=== PATIENT | female | born 1965 | race Caucasian/White ===

== ENCOUNTER 2023-04-19 19:33 | Inpatient (IN) | payer MEDICAID ==
[~2023-04-19] VITALS: Ht 167.6 cm; Wt 90.3 kg
[2023-04-19] MEDS ORDERED: IV NS 0.9% 500 ML BAG IV ONE (21:00)
[2023-04-19] MEDS ORDERED: MECLIZINE HCL 25 MG TABLET ONE (21:35)
[2023-04-19] MEDS ORDERED: ACETAMINOPHEN ES 500 MG TABLET ONE (21:36)
[2023-04-19] MEDS ORDERED: ONDANSETRON 4 MG TAB.RAPDIS ONE (21:36)
[2023-04-19 21:51] LABS: BASOPHILS % (AUTO) 0.5 % (0.0-2.0); EOSINOPHILS # (AUTO) 0.1 K/uL (0.0-0.7); EOSINOPHILS % (AUTO) 1.6 % (0.0-6.0); HEMATOCRIT 43 % (33-45); HEMOGLOBIN 14.5 g/dL (11.5-14.8); LYMPHOCYTES # (AUTO) 1.2 K/uL (0.8-4.8); LYMPHOCYTES % (AUTO) 19.3 % (20.0-44.0); MEAN CORPUSCULAR HEMOGLOBIN 30 PG (26.0-33.0); MEAN CORPUSCULAR HGB CONC 33 g/dl (31.0-36.0); MEAN CORPUSCULAR VOLUME 89 fL (82-100); MONOCYTES # (AUTO) 0.4 K/uL (0.1-1.30); NEUTROPHILS # (AUTO) 4.7 K/uL (1.8-8.9); NEUTROPHILS % (AUTO) 72.6 % (43.0-81.0); PLATELET COUNT (AUTO) 320 K/uL (150-450); RED BLOOD CELL COUNT(AUTO) 4.88 MIL/uL (4.0-5.2); RED CELL DISTRIBUTION WIDTH 14.3 % (11.5-15.0); WHITE BLOOD COUNT (AUTO) 6.5 K/uL (4.3-11.0)
[2023-04-19] MEDS ORDERED: ONDANSETRON 4 MG TAB.RAPDIS PO ONE (22:00)
[2023-04-19] MEDS ORDERED: ASPIRIN 325 MG TABLET PO ONE (22:00)
[2023-04-19] MEDS ORDERED: ACETAMINOPHEN ES 500 MG TABLET PO ONE (22:00)
[2023-04-19] MEDS ORDERED: MECLIZINE HCL 12.5 MG TABLET PO ONE (22:00)
[2023-04-19 22:04] LABS: APPEARANCE,URINE CLEAR (CLEAR); BILIRUBIN,URINE NEGATIVE (NEGATIVE); BLOOD, URINE TRACE-INTA Ery/uL (NEGATIVE); COLOR,URINE YELLOW (YELLOW); KETONES,URINE NEGATIVE (NEGATIVE); LEUKOCYTE ESTERASE ,URINE NEGATIVE (NEGATIVE); NITRITE, URINE NEGATIVE (NEGATIVE); PROTEIN,URINE 2+ mg/dl (NEGATIVE); UGLUCOSE NEGATIVE (NEGATIVE); UROBILINOGEN,URINE 0.2 EU/dL (0.2)
[2023-04-19] MEDS ORDERED: ASPIRIN 325 MG TABLET ONE (22:05)
[2023-04-19 22:06] LABS: CARBON DIOXIDE 29 mmol/L (21-32); CHLORIDE 99 mmol/L (98-107); CREATININE 0.8 mg/dL (0.6-1.3); GLUCOSE 131 mg/dL (74-106); POTASSIUM 3.7 mmol/L (3.5-5.1); SODIUM SERUM 135 mmol/L (136-145); UREA NITROGEN, BLOOD 11 mg/dL (7-18)
[2023-04-19 22:12] LABS: ALANINE AMINOTRANSFERASE 53 U/L (12-78); ALBUMIN 3.7 g/dL (3.4-5.0); ALKALINE PHOSPHATASE 114 U/L (46-116); ASPARTATE AMINOTRANSFERASE 23 U/L (15-37); BILIRUBIN,DIRECT 0.1 mg/dL (0.0-0.2); BILIRUBIN,TOTAL 0.3 mg/dL (0.2-1.0); TOTAL PROTEIN, SERUM 8.2 g/dL (6.4-8.2)
[2023-04-19 22:24] LABS: ADD URINE CULTURE NO; BACTERIA,URINE None seen /HPF (None Seen); MUCUS,URINE Many /LPF (None Seen); WBC,URINE 0-2 /HPF (0-3)
[2023-04-19 22:44] LABS: INR 1.02 (0.91-1.10); PARTIAL THROMBOPLASTIN TIME 30.8 SEC (24.3-34.3); PROTHROMBIN TIME 10.8 SECS (9.2-11.1)
[2023-04-19 22:58] VITALS: BP 177/100; TEMP 97.9; O2SAT 99
[2023-04-19] MEDS ORDERED: ONDANSETRON HCL/PF 4 MG/2 ML VIAL IVP PRN (23:00)
[2023-04-19] MEDS ORDERED: MAGNESIUM HYDROXIDE 30 ML UDC PO PRN (23:00)
[2023-04-19] MEDS ORDERED: Z GUARD REMEDY 4 OZ OINT TP PRN (23:00)
[2023-04-19] MEDS ORDERED: ACETAMINOPHEN 325 MG TABLET PO PRN (23:00)
[2023-04-19] MEDS ORDERED: MECLIZINE HCL 12.5 MG TABLET PO PRN (23:00)
[2023-04-19] MEDS ORDERED: ZOLPIDEM TARTRATE 5 MG TABLET PO PRN (23:00)
[2023-04-19] MEDS ORDERED: MAG HYDROX/AL HYDROX/SIMETH 30 ML UDC PO PRN (23:00)
[2023-04-20] VITALS: BP 169/96; TEMP 97.9; O2SAT 96
[2023-04-20 04:00] VITALS: BP 167/99; TEMP 97.5; O2SAT 100
[2023-04-20 07:30] LABS: BASOPHILS % (AUTO) 0.5 % (0.0-2.0); EOSINOPHILS # (AUTO) 0.3 K/uL (0.0-0.7); EOSINOPHILS % (AUTO) 4.7 % (0.0-6.0); HEMATOCRIT 43 % (33-45); HEMOGLOBIN 14.3 g/dL (11.5-14.8); LYMPHOCYTES # (AUTO) 1.9 K/uL (0.8-4.8); LYMPHOCYTES % (AUTO) 27.6 % (20.0-44.0); MEAN CORPUSCULAR HEMOGLOBIN 30 PG (26.0-33.0); MEAN CORPUSCULAR HGB CONC 33 g/dl (31.0-36.0); MEAN CORPUSCULAR VOLUME 89 fL (82-100); MONOCYTES # (AUTO) 0.6 K/uL (0.1-1.30); MONOCYTES % (AUTO) 8.6 % (2.0-12.0); NEUTROPHILS % (AUTO) 58.6 % (43.0-81.0); PLATELET COUNT (AUTO) 314 K/uL (150-450); RED BLOOD CELL COUNT(AUTO) 4.85 MIL/uL (4.0-5.2); RED CELL DISTRIBUTION WIDTH 14.5 % (11.5-15.0); WHITE BLOOD COUNT (AUTO) 6.8 K/uL (4.3-11.0)
[2023-04-20 07:40] LABS: CALCIUM, SERUM 9.2 mg/dL (8.5-10.1); CREATININE 0.8 mg/dL (0.6-1.3); MAGNESIUM 2.3 mg/dL (1.8-2.4); PHOSPHORUS 4.4 mg/dL (2.5-4.9); POTASSIUM 3.7 mmol/L (3.5-5.1)
[2023-04-20 08:00] VITALS: BP 164/88; TEMP 98.1; O2SAT 100
[2023-04-20 08:03] LABS: THYROID STIMULATING HORMONE 2.83 uIU/mL (0.358-3.74)
[2023-04-20] MEDS ORDERED: ATOR20TA PO (08:34)
[2023-04-20] MEDS ORDERED: AMLO5TAB4 PO (08:34)
[2023-04-20] MEDS ORDERED: BENA40TA8 PO (08:34)
[2023-04-20] MEDS ORDERED: ASPIRIN 81 MG TAB.CHEW PO SCH (09:00)
[2023-04-20] MEDS ORDERED: BENAZEPRIL HCL 20 MG TABLET PO SCH (09:00)
[2023-04-20 12:00] VITALS: BP 167/94; TEMP 97.9; O2SAT 100
[2023-04-20] MEDS ORDERED: IOHEXOL-350 100 ML VIAL IV ONE (12:54)
[2023-04-20] MEDS ORDERED: IV NS 0.9% 250 ML IV ONE (12:54)
[2023-04-20] MEDS ORDERED: ATORVASTATIN 40 MG TABLET PO SCH (22:00)
[2023-04-20] MEDS ORDERED: ATORVASTATIN 10 MG TABLET PO SCH (22:00)
== END 2023-04-20 13:56 | disposition home or self-care (01) | DRG 111 ==
LOC: ER 19:38 → TELE1 22:19
PROVIDERS: ADMIT Nurse Practitioner Acute Care; ATTEND Internal Medicine
DX: H81.10 Benign paroxysmal vertigo, unspecified ear (principal); E87.1 Hypo-osmolality and hyponatremia; E66.9 Obesity, unspecified; Z68.32 Body mass index [BMI] 32.0-32.9, adult; R26.9 Unspecified abnormalities of gait and mobility; I10 Essential (primary) hypertension; E78.5 Hyperlipidemia, unspecified; G43.809 Other migraine, not intractable, without status migrainosus
CPT/HCPCS: 36415; 70450-TC; 80048-TC; 80061-TC; 80076-TC; 81001; 83735-TC; 84100-TC; 84443-TC; 84484-TC; 85025-TC; 85730-TC; 93307-TC; 93880-TC; 97110-TC; 97116-TC; G0378; J7040; J7050; J8597; Q0162; Q9967

== ENCOUNTER 2023-06-17 12:00 | Inpatient (IN) | payer MEDICAID ==
[~2023-06-17] VITALS: Ht 167.6 cm; Wt 88.5 kg
[~2023-06-17 12:00] MED LIST: AMLO5TAB4 PO; ATOR20TA PO; BENA40TA8 PO
[2023-06-17] MEDS ORDERED: CT SWABBABLE VALVE TRANS SET 1 EA INFUS.SET MC ONE (12:21)
[2023-06-17] MEDS ORDERED: IV NS 0.9% 250 ML IV ONE (12:21)
[2023-06-17] MEDS ORDERED: IOHEXOL-350 100 ML VIAL IV ONE (12:21)
[2023-06-17 12:39] LABS: BASOPHILS % (AUTO) 0.8 % (0.0-2.0); EOSINOPHILS # (AUTO) 0.1 K/uL (0.0-0.7); EOSINOPHILS % (AUTO) 2.4 % (0.0-6.0); HEMATOCRIT 43 % (33-45); HEMOGLOBIN 14.2 g/dL (11.5-14.8); LYMPHOCYTES # (AUTO) 1.3 K/uL (0.8-4.8); LYMPHOCYTES % (AUTO) 34.4 % (20.0-44.0); MEAN CORPUSCULAR HEMOGLOBIN 29 PG (26.0-33.0); MEAN CORPUSCULAR HGB CONC 33 g/dl (31.0-36.0); MEAN CORPUSCULAR VOLUME 87 fL (82-100); MONOCYTES # (AUTO) 0.7 K/uL (0.1-1.30); MONOCYTES % (AUTO) 19.1 % (2.0-12.0); NEUTROPHILS # (AUTO) 1.6 K/uL (1.8-8.9); NEUTROPHILS % (AUTO) 43.3 % (43.0-81.0); PLATELET COUNT (AUTO) 253 K/uL (150-450); RED CELL DISTRIBUTION WIDTH 14.2 % (11.5-15.0); WHITE BLOOD COUNT (AUTO) 3.7 K/uL (4.3-11.0)
[2023-06-17 12:43] LABS: INR 1.04 (0.91-1.10); PARTIAL THROMBOPLASTIN TIME 34.5 SEC (24.3-34.3)
[2023-06-17 12:47] LABS: CARBON DIOXIDE 28 mmol/L (21-32); CHLORIDE 100 mmol/L (98-107); CREATININE 0.8 mg/dL (0.6-1.3); GLUCOSE 127 mg/dL (74-106); POTASSIUM 3.5 mmol/L (3.5-5.1); SODIUM SERUM 137 mmol/L (136-145); UREA NITROGEN, BLOOD 16 mg/dL (7-18)
[2023-06-17 13:14] LABS: APPEARANCE,URINE Clear (CLEAR); BILIRUBIN,URINE Negative (NEGATIVE); BLOOD, URINE Small Ery/uL (NEGATIVE); COLOR,URINE YELLOW (YELLOW); KETONES,URINE Negative (NEGATIVE); LEUKOCYTE ESTERASE ,URINE Negative (NEGATIVE); NITRITE, URINE Negative (NEGATIVE); PROTEIN,URINE Negative (NEGATIVE); UGLUCOSE Negative (NEGATIVE); UROBILINOGEN,URINE 0.2 EU/dL (0.2)
[2023-06-17 13:24] LABS: ADD URINE CULTURE NO; BACTERIA,URINE None seen /HPF (None Seen); WBC,URINE NONE SEEN /HPF (0-3)
[2023-06-17] MEDS ORDERED: MECLIZINE HCL 25 MG TABLET ONE (13:35)
[2023-06-17] MEDS ORDERED: ASPIRIN 325 MG TABLET ONE (13:35)
[2023-06-17] MEDS ORDERED: ASPIRIN 81 MG TAB.CHEW ONE (13:37)
[2023-06-17] MEDS: IV NS 0.9% 1,000 ML BAG IV ONE (13:44)
[2023-06-17] MEDS: MECLIZINE HCL 12.5 MG TABLET PO ONE (13:45)
[2023-06-17] MEDS: ASPIRIN 81 MG TAB.CHEW PO ONE (13:45)
[2023-06-17] MEDS ORDERED: ASPI-1420 PO (14:09)
[2023-06-17] MEDS ORDERED: ACET-73 PO (14:09)
[2023-06-17] MEDS ORDERED: MAG HYDROX/AL HYDROX/SIMETH 30 ML UDC PO PRN (14:30)
[2023-06-17] MEDS ORDERED: ONDANSETRON HCL/PF 4 MG/2 ML VIAL IVP PRN (14:30)
[2023-06-17] MEDS ORDERED: Z GUARD REMEDY 4 OZ OINT TP PRN (14:30)
[2023-06-17] MEDS ORDERED: MAGNESIUM HYDROXIDE 30 ML UDC PO PRN (14:30)
[2023-06-17 17:20] LABS: ANISOCYTOSIS 1+; BAND % (MANUAL) 4 % (0.0-5.0); EOSINOPHILS % (MANUAL) 1 % (0-4); LYMPHOCYTES % (MANUAL) 34 % (16-48); MONOCYTES % (MANUAL) 4 % (0-11.0); NEUTROPHILS % (MANUAL) 57 (42-76); PLATELET ESTIMATE ADEQUATE
[2023-06-17] MEDS ORDERED: ENOXAPARIN SODIUM 40 MG/0.4 ML DISP.SYRIN SQ ONE (18:09)
[2023-06-17] MEDS: ENOXAPARIN SODIUM 40 MG/0.4 ML DISP.SYRIN SQ SCH (18:16)
[2023-06-17 20:47] VITALS: O2SAT 96
[2023-06-17 21:00] VITALS: BP 150/94; TEMP 98.4; O2SAT 92
[2023-06-17] MEDS: ATORVASTATIN 10 MG TABLET PO SCH (22:54)
[2023-06-18] VITALS: BP 82/82; TEMP 98.1; O2SAT 96
[2023-06-18 04:58] VITALS: BP 144/89; TEMP 98.2; O2SAT 98
[2023-06-18 07:35] LABS: BASOPHILS % (AUTO) 0.6 % (0.0-2.0); EOSINOPHILS # (AUTO) 0.2 K/uL (0.0-0.7); HEMATOCRIT 39 % (33-45); HEMOGLOBIN 13.2 g/dL (11.5-14.8); LYMPHOCYTES # (AUTO) 1.3 K/uL (0.8-4.8); LYMPHOCYTES % (AUTO) 38.3 % (20.0-44.0); MEAN CORPUSCULAR HEMOGLOBIN 30 PG (26.0-33.0); MEAN CORPUSCULAR HGB CONC 34 g/dl (31.0-36.0); MEAN CORPUSCULAR VOLUME 88 fL (82-100); MONOCYTES # (AUTO) 0.5 K/uL (0.1-1.30); MONOCYTES % (AUTO) 13.5 % (2.0-12.0); NEUTROPHILS # (AUTO) 1.4 K/uL (1.8-8.9); NEUTROPHILS % (AUTO) 40.6 % (43.0-81.0); PLATELET COUNT (AUTO) 245 K/uL (150-450); RED BLOOD CELL COUNT(AUTO) 4.38 MIL/uL (4.0-5.2); RED CELL DISTRIBUTION WIDTH 14.4 % (11.5-15.0); WHITE BLOOD COUNT (AUTO) 3.5 K/uL (4.3-11.0)
[2023-06-18 07:39] LABS: CREATININE 0.8 mg/dL (0.6-1.3); PHOSPHORUS 5.3 mg/dL (2.5-4.9); POTASSIUM 3.5 mmol/L (3.5-5.1)
[2023-06-18 08:01] LABS: THYROID STIMULATING HORMONE 5.102 uIU/mL (0.358-3.74)
[2023-06-18 08:35] VITALS: BP 148/80; TEMP 98.4; O2SAT 96
[2023-06-18] MEDS ORDERED: BENAZEPRIL HCL 10 MG TABLET PO SCH (09:00)
[2023-06-18] MEDS: PANTOPRAZOLE 40 MG TABLET.DR PO SCH (09:28)
[2023-06-18] MEDS: ASPIRIN 325 MG TABLET PO SCH (09:28)
[2023-06-18] MEDS: AMLODIPINE BESYLATE 5 MG TABLET PO SCH ×2 (09:28→10:00)
[2023-06-18] MEDS: ASPIRIN EC 81 MG TABLET.DR PO SCH (10:00)
[2023-06-18] MEDS: ACETAMINOPHEN 325 MG TABLET PO PRN (10:51)
[2023-06-18 12:00] VITALS: BP 140/93; TEMP 98; O2SAT 98
[2023-06-18 16:13] VITALS: BP 132/79; TEMP 98.6; O2SAT 97
[2023-06-18] MEDS ORDERED: CHOL200059 PO (16:40)
[2023-06-18] MEDS ORDERED: ERGO500093 PO (16:40)
[2023-06-18] MEDS ORDERED: CLOP75TA15 PO (18:29)
[2023-06-19] MEDS ORDERED: BENAZEPRIL HCL 20 MG TABLET PO SCH ×2 (09:00)
== END 2023-06-18 19:20 | disposition home or self-care (01) | DRG 47 ==
LOC: ER 12:07 → TELE 20:14
PROVIDERS: ADMIT Nurse Practitioner Acute Care; ATTEND Nurse Practitioner Acute Care
DX: G45.9 Transient cerebral ischemic attack, unspecified (principal); D72.819 Decreased white blood cell count, unspecified; I10 Essential (primary) hypertension; R73.9 Hyperglycemia, unspecified; R29.700 NIHSS score 0; Z90.710 Acquired absence of both cervix and uterus; Z79.899 Other long term (current) drug therapy; E66.9 Obesity, unspecified; Z68.31 Body mass index [BMI] 31.0-31.9, adult; E78.5 Hyperlipidemia, unspecified; R94.6 Abnormal results of thyroid function studies
CPT/HCPCS: 36415; 70450-TC; 70496-TC; 70498-TC; 71045-TC; 80048-TC; 80061-TC; 81001; 82962-TC; 83735-TC; 84100-TC; 84439-TC; 84443-TC; 84484-TC; 85025-TC; 85730-TC; 92526; 92611-TC; 93307-TC; 97112-TC; 97116-TC; 97530-TC; G0378; J1650; J7030; J7050; J8597; Q9967

== ENCOUNTER 2024-06-13 22:29 | Inpatient (IN) | payer MEDICAID ==
[~2024-06-13] VITALS: Ht 157.5 cm; Wt 83.9 kg
[~2024-06-13 22:29] MED LIST changes: +ACET-73 PO; +ASPI-1420 PO; +CHOL200059 PO; +CLOP75TA15 PO; +ERGO500093 PO
[2024-06-13] MEDS ORDERED: IOHEXOL-350 100 ML VIAL IV ONE (22:41)
[2024-06-13] MEDS ORDERED: IV NS 0.9% 250 ML IV ONE (22:41)
[2024-06-13 22:48] LABS: BASOPHILS % (AUTO) 0.6 % (0.0-2.0); EOSINOPHILS # (AUTO) 0.3 K/uL (0.0-0.7); EOSINOPHILS % (AUTO) 4.6 % (0.0-6.0); HEMATOCRIT 46 % (33-45); HEMOGLOBIN 15.6 g/dL (11.5-14.8); LYMPHOCYTES % (AUTO) 30.6 % (20.0-44.0); MEAN CORPUSCULAR HEMOGLOBIN 30 PG (26.0-33.0); MEAN CORPUSCULAR HGB CONC 34 g/dl (31.0-36.0); MEAN CORPUSCULAR VOLUME 87 fL (82-100); MONOCYTES # (AUTO) 0.6 K/uL (0.1-1.30); MONOCYTES % (AUTO) 8.7 % (2.0-12.0); NEUTROPHILS # (AUTO) 3.6 K/uL (1.8-8.9); NEUTROPHILS % (AUTO) 55.5 % (43.0-81.0); PLATELET COUNT (AUTO) 274 K/uL (150-450); RED BLOOD CELL COUNT(AUTO) 5.27 MIL/uL (4.0-5.2); RED CELL DISTRIBUTION WIDTH 14.8 % (11.5-15.0); WHITE BLOOD COUNT (AUTO) 6.5 K/uL (4.3-11.0)
[2024-06-13 23:07] LABS: PARTIAL THROMBOPLASTIN TIME 29.8 SEC (24.3-34.3); PROTHROMBIN TIME 10.6 SECS (9.2-11.1)
[2024-06-13 23:14] LABS: CALCIUM, SERUM 9.8 mg/dL (8.5-10.1); POTASSIUM 4.1 mmol/L (3.5-5.1)
[2024-06-13] MEDS: IV NS 0.9% 1,000 ML BAG IV ONE (23:16)
[2024-06-13] MEDS ORDERED: hydrALAZINE HCL IV 20 MG VIAL ONE (23:29)
[2024-06-13] MEDS: hydrALAZINE HCL IV 20 MG VIAL IV ONE (23:54)
[2024-06-13 23:59] LABS: APPEARANCE,URINE CLEAR (CLEAR); BILIRUBIN,URINE NEGATIVE (NEGATIVE); BLOOD, URINE 1+ Ery/uL (NEGATIVE); COLOR,URINE YELLOW (YELLOW); KETONES,URINE NEGATIVE (NEGATIVE); LEUKOCYTE ESTERASE ,URINE NEGATIVE (NEGATIVE); NITRITE, URINE NEGATIVE (NEGATIVE); PROTEIN,URINE TRACE mg/dl (NEGATIVE); UGLUCOSE NEGATIVE (NEGATIVE); UROBILINOGEN,URINE 0.2 EU/dL (0.2)
[2024-06-14 00:14] LABS: ALCOHOL, BLOOD < 3 mg/dL (0-10)
[2024-06-14 00:15] LABS: SERUM AMMONIA 23 umol/L (11-32)
[2024-06-14 00:18] LABS: AMPHETAMINE, URINE NEGATIVE (NEGATIVE); BARBITURATE, URINE NEGATIVE (NEGATIVE); BENZODIAZEPINE, URINE NEGATIVE (NEGATIVE); CANNABINOID, URINE NEGATIVE (NEGATIVE); COCCAINE, URINE NEGATIVE (NEGATIVE); OPIATE, URINE NEGATIVE (NEGATIVE); PHENCYCLIDINE SCREEN,URINE NEGATIVE (NEGATIVE)
[2024-06-14] MEDS ORDERED: ONDANSETRON HCL/PF 4 MG/2 ML VIAL ONE (00:26)
[2024-06-14] MEDS ORDERED: MORPHINE SULFATE INJ 2 MG/ML DISP.SYRIN ONE (00:26)
[2024-06-14] MEDS: MORPHINE SULFATE INJ 2 MG/ML DISP.SYRIN IV ONE (00:55)
[2024-06-14] MEDS: ONDANSETRON HCL/PF - ER 4 MG/2 ML VIAL IV ONE (00:55)
[2024-06-14] MEDS: NITROGLYCERIN PACKET 1 GM PACKET TOP ONE (00:56)
[2024-06-14] MEDS ORDERED: NITROGLYCERIN PACKET 1 GM PACKET ONE (00:56)
[2024-06-14 01:07] LABS: ADD URINE CULTURE NO; BACTERIA,URINE Rare /HPF (None Seen); SQUAMOUS EPITHELIAL CELL,UR 0-2 /HPF (None Seen); WBC,URINE 0-2 /HPF (0-3)
[2024-06-14 03:10] VITALS: BP 133/81; TEMP 98.2; O2SAT 97
[2024-06-14 03:30] VITALS: BP 133/81; TEMP 98.2; O2SAT 97
[2024-06-14] MEDS ORDERED: hydrALAZINE HCL IV 20 MG VIAL IV PRN (04:00)
[2024-06-14] MEDS ORDERED: ONDANSETRON HCL/PF 4 MG/2 ML VIAL IVP PRN (04:00)
[2024-06-14] MEDS: IV NS 0.9% 1,000 ML IV PRN (04:32)
[2024-06-14] MEDS: ENOXAPARIN SODIUM 40 MG/0.4 ML DISP.SYRIN SQ SCH (04:50)
[2024-06-14 08:00] VITALS: BP 139/105; TEMP 97.5; O2SAT 98
[2024-06-14] MEDS: ASPIRIN EC 81 MG TABLET.DR PO SCH (08:22)
[2024-06-14] MEDS: BENAZEPRIL HCL 20 MG TABLET PO SCH (08:22)
[2024-06-14] MEDS: AMLODIPINE BESYLATE 5 MG TABLET PO SCH (08:22)
[2024-06-14] MEDS: CHOLECALCIFEROL 1,000 UNIT TABLET (VIT D3) PO SCH (08:23)
[2024-06-14] MEDS: CLOPIDOGREL BISULFATE 75 MG TABLET PO SCH (08:24)
[2024-06-14 16:00] VITALS: BP 134/75; TEMP 97.9; O2SAT 97
[2024-06-14 20:00] VITALS: BP 152/83; TEMP 98.2; O2SAT 97
[2024-06-14 20:20] LABS: CHOLESTEROL 141 mg/dL (<200); HDL CHOLESTEROL 54 mg/dL (40-60); LDL 78 mg/dL (0-99); TRIGLYCERIDES 60 mg/dL (30-150)
[2024-06-14] MEDS: ATORVASTATIN 40 MG TABLET PO SCH (21:59)
[2024-06-14] MEDS: ACETAMINOPHEN 325 MG TABLET PO PRN (22:00)
[2024-06-15 04:00] VITALS: BP 178/100; TEMP 98.2; O2SAT 99
[2024-06-15 07:03] LABS: BASOPHILS % (AUTO) 0.8 % (0.0-2.0); EOSINOPHILS # (AUTO) 0.3 K/uL (0.0-0.7); EOSINOPHILS % (AUTO) 6.5 % (0.0-6.0); HEMATOCRIT 43 % (33-45); HEMOGLOBIN 14.2 g/dL (11.5-14.8); LYMPHOCYTES # (AUTO) 1.4 K/uL (0.8-4.8); LYMPHOCYTES % (AUTO) 27.2 % (20.0-44.0); MEAN CORPUSCULAR HEMOGLOBIN 30 PG (26.0-33.0); MEAN CORPUSCULAR HGB CONC 34 g/dl (31.0-36.0); MEAN CORPUSCULAR VOLUME 88 fL (82-100); MONOCYTES # (AUTO) 0.4 K/uL (0.1-1.30); MONOCYTES % (AUTO) 8.3 % (2.0-12.0); NEUTROPHILS # (AUTO) 2.9 K/uL (1.8-8.9); NEUTROPHILS % (AUTO) 57.2 % (43.0-81.0); PLATELET COUNT (AUTO) 245 K/uL (150-450); RED BLOOD CELL COUNT(AUTO) 4.81 MIL/uL (4.0-5.2); RED CELL DISTRIBUTION WIDTH 14.6 % (11.5-15.0)
[2024-06-15 07:26] LABS: CALCIUM, SERUM 9.1 mg/dL (8.5-10.1); CREATININE 0.6 mg/dL (0.6-1.3); MAGNESIUM 2.2 mg/dL (1.8-2.4); PHOSPHORUS 4.3 mg/dL (2.5-4.9); POTASSIUM 4.2 mmol/L (3.5-5.1)
[2024-06-15] MEDS: AMLODIPINE BESYLATE 5 MG TABLET PO SCH (08:45)
[2024-06-15] MEDS: hydrALAZINE HCL 50 MG TABLET PO SCH (09:00)
[2024-06-15 10:03] VITALS: BP 183/84; TEMP 97.8; O2SAT 98
[2024-06-15 10:15] LABS: THYROID STIMULATING HORMONE 2.17 uIU/mL (0.358-3.74)
[2024-06-15] MEDS: VALSARTAN 80 MG TABLET PO SCH (12:45)
[2024-06-15 16:00] VITALS: BP 127/78; TEMP 98.6; O2SAT 97
[2024-06-15 20:00] VITALS: BP 131/75; TEMP 98.1; O2SAT 95
[2024-06-16 08:00] VITALS: BP 134/77; TEMP 97.9; O2SAT 98
[2024-06-16] MEDS ORDERED: HYDR100T27 PO (12:32)
[2024-06-16] MEDS ORDERED: VALS160T2 PO (12:32)
[2024-06-16 16:00] VITALS: BP 123/79; TEMP 98.4; O2SAT 97
[2024-06-16 17:14] VITALS: BP 144/90
[2024-06-17 06:10] LABS: CORTISOL SERUM 4.4 ug/dL (6.2-19.4)
== END 2024-06-16 18:36 | disposition home or self-care (01) | DRG 199 ==
LOC: ER 22:30 → TELE 06-14 02:40 → MED 06-15 10:48
DX: I16.0 Hypertensive urgency (principal); G93.40 Encephalopathy, unspecified; E11.9 Type 2 diabetes mellitus without complications; Z86.73 Personal history of transient ischemic attack (TIA), and cerebral infarction without residual deficits; G43.909 Migraine, unspecified, not intractable, without status migrainosus; Z79.02 Long term (current) use of antithrombotics/antiplatelets; Z79.82 Long term (current) use of aspirin; Z79.899 Other long term (current) drug therapy; E78.5 Hyperlipidemia, unspecified; E66.9 Obesity, unspecified; Z68.33 Body mass index [BMI] 33.0-33.9, adult; I10 Essential (primary) hypertension; Z91.148 Patient's other noncompliance with medication regimen for other reason; Z90.710 Acquired absence of both cervix and uterus; Z98.890 Other specified postprocedural states; Z87.891 Personal history of nicotine dependence
CPT/HCPCS: 36415; 70450-TC; 70496-TC; 70498-TC; 70551-TC; 71045-TC; 80048-TC; 80061-TC; 81001; 82140-TC; 82164; 82533; 82962-TC; 83735-TC; 83880; 84100-TC; 84244; 84443-TC; 84484-TC; 85025-TC; 85730-TC; 92526; 92611-TC; 93307-TC; 97110-TC; 97116-TC; 97530-TC; 97535-TC; A4223; G0378; G0480; J0360; J1650; J2270; J2405; J7030; J7050; Q9967